=== PATIENT | female | born 1955 | race Caucasian/White ===

== ENCOUNTER → 2018-05-05 | Outpatient (REF) | payer BC, OTHER | LOC: M LAB REF 12:45 | DX: D22.5 Melanocytic nevi of trunk (principal) | CPT/HCPCS: 88305 ==

== ENCOUNTER → 2018-07-07 | Outpatient (REF) | payer BC, OTHER | LOC: M SFHCLERA 09:08 | DX: L57.0 Actinic keratosis (principal); L72.0 Epidermal cyst; L82.1 Other seborrheic keratosis | CPT/HCPCS: 88305 ==

== ENCOUNTER → 2018-09-24 | Outpatient (CLI) | payer BC, OTHER ==
--- NOTE | 2018-10-16 10:33 | REPMRS ---
Patient History The patient states she had a clinical breast exam in 09/30 Patient has history of skin cancer at age 63 and had first child at age 52. Family history of prostate cancer in father, breast cancer at age 80 in paternal aunt. Digital Woman Screen Mammo: September 24, 2018 - Exam #: [id number] Bilateral CC and MLO view(s) were taken. Technologist: Sherin Marlow, Technologist Prior study comparison: October 11, 2016, bilateral digital mammo screening bilat, [facility]. FINDINGS: The breast tissue is heterogeneously dense. This may lower the sensitivity of mammography. There is a moderate amount of heterogeneously dense fibroglandular tissue which is fairly symmetric. There is no interval development of dominant mass, architectural distortion, or clustered microcalcification typical of malignancy. There has been no change in the appearance of the mammogram from the prior studies. 3-D tomosynthesis shows no additional findings. Assessment: BI-RADS/ACR category 1 mammogram. Negative. Recommendation Routine screening mammogram of both breasts in 1 year (for women over age 40). This patient's Lifetime Breast Cancer RIsk is estimated at 15.2 %. This mammogram was interpreted with the aid of an FDA-approved computer-aided dectection system. Electronically Signed By: Milton Gallardo MD 10/16/18 [id number]
== END ==
LOC: M WHC 13:07 → EDUNIT# 13:30
PROVIDERS: ATTEND Nurse Practitioner Women's Health
DX: Z12.31 Encounter for screening mammogram for malignant neoplasm of breast (principal); Z85.828 Personal history of other malignant neoplasm of skin

== ENCOUNTER → 2018-09-24 | Outpatient (REF) | payer BC, OTHER ==
[2018-10-01 14:14] LABS: HPV HYBRID CAPTURE II Negative (Negative)
== END ==
LOC: M SFHCWAGY 13:18
DX: Z12.4 Encounter for screening for malignant neoplasm of cervix (principal)
CPT/HCPCS: G0123

== ENCOUNTER → 2019-04-14 | Outpatient (REF) | payer BC, OTHER ==
[2019-04-14 10:42] LABS: MALB URINE SIEMENS 8.2 MG/L; MAU/CREAT RATIO 12.2 MCG/MG (0.0-30.0)
[2019-04-14 12:26] LABS: BLOOD UREA NITROGEN 24 MG/DL (7-18); CALCIUM LEVEL 8.5 MG/DL (8.8-10.2); CARBON DIOXIDE LEVEL 27 MEQ/L (21-32); CHLORIDE LEVEL 109 MEQ/L (98-107); CHOLESTEROL LEVEL 169 MG/DL (<200); CHOLESTEROL RISK RATIO 2.449 (<5); CREATININE FOR GFR 0.52 MG/DL (0.55-1.30); GLOMERULAR FILTRATION RATE > 60.0 (>45); GLUCOSE, FASTING 94 MG/DL (70-100); HDL CHOLESTEROL 69 MG/DL (>40); LDL CHOLESTEROL 88 MG/DL (<100); NON-HDL-C 100 MG/DL; POTASSIUM SERUM 4.6 MEQ/L (3.5-5.1); SODIUM LEVEL 142 MEQ/L (136-145); TRIGLYCERIDES LEVEL 61 MG/DL (<150)
== END ==
LOC: M SFHCPLAZ 07:57
PROVIDERS: ATTEND Family Medicine
DX: E78.2 Mixed hyperlipidemia (principal); I10 Essential (primary) hypertension; Z11.59 Encounter for screening for other viral diseases
CPT/HCPCS: 36415; 80048; 80061; 82043; G0472

== ENCOUNTER → 2019-04-20 | Outpatient (REF) | payer BC, OTHER | LOC: M SFHCPLAZ 17:00 | PROVIDERS: ATTEND Dermatology | DX: L57.0 Actinic keratosis (principal); L57.8 Other skin changes due to chronic exposure to nonionizing radiation ==

== ENCOUNTER 2019-05-18 10:34 | Emergency (ER) | payer BC, OTHER ==
[~2019-05-18] VITALS: Ht 162.6 cm; Wt 72.9 kg
[2019-05-18 11:19] LABS: BASO % 0.5 % (0.0-1.0); EOS # 0.1 10^3/uL (0.0-0.50); EOS % 0.8 % (0.0-3.0); HEMATOCRIT 39.6 % (36.0-47.0); HEMOGLOBIN 13.6 g/dl (12.0-15.5); LYMPH # 1.7 10^3/uL (1.5-4.5); LYMPH % 26.3 % (24.0-44.0); MEAN CORPUSCULAR HEMOGLOBIN 33.8 pg (27.0-33.0); MEAN CORPUSCULAR HGB CONC 34.3 g/dl (32.0-36.5); MEAN CORPUSCULAR VOLUME 98.5 fl (80.0-96.0); MONO # 0.5 10^3/uL (0.0-0.8); MONO % 7.7 % (0.0-5.0); NEUTROPHILS # 4.3 10^3/uL (1.8-7.7); NEUTROPHILS % 64.4 % (36.0-66.0); PLATELET COUNT, AUTOMATED 299 10^3/uL (150-450); RED BLOOD COUNT 4.02 10^6/uL (4.00-5.40); WHITE BLOOD COUNT 6.6 10^3/uL (4.0-10.0)
[2019-05-18 11:29] LABS: INR 0.99; PROTHROMBIN TIME 12.8 SECONDS (11.8-14.0)
[2019-05-18 11:37] LABS: BLOOD UREA NITROGEN 18 MG/DL (7-18); CALCIUM LEVEL 9.8 MG/DL (8.8-10.2); CARBON DIOXIDE LEVEL 24 MEQ/L (21-32); CHLORIDE LEVEL 107 MEQ/L (98-107); CK-MB VALUE MASS 1.4 NG/ML (<3.6); CPK CREATINE PHOSPHOKINASE 95 U/L (26-192); CREATININE FOR GFR 0.72 MG/DL (0.55-1.30); GLOMERULAR FILTRATION RATE > 60.0 (>45); GLUCOSE, FASTING 97 MG/DL (70-100); MB/CK RELATIVE INDEX 1.47 (< OR =4); SODIUM LEVEL 140 MEQ/L (136-145); TROPONIN I < 0.02 NG/ML (< 0.10)
[2019-05-18] MEDS ORDERED: METO1TAB32 PO (12:39)
[2019-05-18] MEDS ORDERED: ASPIRIN 81 MG CHEW TABLET PO ONE (13:30)
--- NOTE | 2019-05-18 14:04 | REP ---
CHEST, SINGLE VIEW: No comparisons. There is no evidence of acute infiltrate. No pleural effusion is seen. The heart is normal in size. The mediastinal silhouette is unremarkable. The visualized osseous structures are intact. There is mild calcification and tortuosity of the thoracic aorta. IMPRESSION: No acute pulmonary disease. Electronically Signed by Ar Mckeon MD 05/20/2019 07:49 A
[2019-05-18 16:01] LABS: CK-MB VALUE MASS 1.4 NG/ML (<3.6); CPK CREATINE PHOSPHOKINASE 83 U/L (26-192); MB/CK RELATIVE INDEX 1.69 (< OR =4); TROPONIN I < 0.02 NG/ML (< 0.10)
[2019-05-18 16:34] VITALS: BP 135/70
--- NOTE | 2019-05-18 20:00 | ECGEPIP ---
[facility] - ED Test Date: 2019-05-18 Pat Name: CLAY MAYA Department: Room: - Gender: Female Dinkey Engineer: pmo : 1955 Requested By: Sagar Armendariz Order Number: [id number] Reading MD: Sagar Armendariz Measurements Intervals [place] Rate: 72 P: 54 IA: 144 QRS: 16 QRSD: 94 T: 56 QT: 395 QTc: 434 Interpretive Statements SINUS RHYTHM MODERATE ST DEPRESSION DELAYED R WAVE PROGRESSION NO PRIOR ECG FOR COMPARISON Electronically Signed on 05-18-2019 20:00:27 EDT by Sagar Armendariz
--- NOTE | 2019-05-18 20:12 | ECGEPIP ---
[facility] - ED Test Date: 2019-05-18 Pat Name: CLAY MAYA Department: Room: - Gender: Female Sales And Marketing Representative: : 1955 Requested By: Sagar Armendariz Order Number: [id number] Reading MD: Sagar Armendariz Measurements Intervals [place] Rate: 62 P: 40 DC: 155 QRS: -18 QRSD: 106 T: 95 QT: 413 QTc: 422 Interpretive Statements SINUS RHYTHM LAD LEFT VENTRICULAR HYPERTROPHY AND ST-T CHANGE BASELINE ARTIFACT MAY AFFECT READING BASELINE WANDERING MAY AFFECT READING DELAYED R WAVE PROGRESSION NONSPECIFIC ST T WAVE CHANGES CW 05/18/[address] T WAVE HANGES Electronically Signed on 05-18-2019 20:12:35 EDT by Sagar Armendariz
[2019-09-16] MEDS ORDERED: NAPR-885 PO (13:29)
[2019-09-16] MEDS ORDERED: GLUC1TAB58 PO (13:29)
[2019-09-16] MEDS ORDERED: CETI10CH PO (13:29)
[2019-09-16] MEDS ORDERED: ATOR80TA59 PO (13:29)
[2019-09-16] MEDS ORDERED: MULTCAP PO ×2 (13:29)
[2019-09-16] MEDS ORDERED: VALT500T PO (13:29)
[2019-09-16] MEDS ORDERED: VITA500T PO (13:29)
[2019-09-16] MEDS ORDERED: CLOP75TA2 PO (13:29)
[2019-09-16] MEDS ORDERED: CHOL50002 PO (13:29)
[2019-09-16] MEDS ORDERED: LANS30CA PO (13:29)
[2019-09-16] MEDS ORDERED: ASPI81TA85 PO (13:29)
[2019-09-16] MEDS ORDERED: ESCI10TA2 PO (13:29)
[2019-09-16] MEDS ORDERED: FLON1SPR NARES (13:29)
== END 2019-05-18 16:35 | disposition home or self-care (01) ==
LOC: M ED 10:34
DX: R07.9 Chest pain, unspecified (principal); I25.10 Atherosclerotic heart disease of native coronary artery without angina pectoris; I10 Essential (primary) hypertension; E78.5 Hyperlipidemia, unspecified; Z79.899 Other long term (current) drug therapy; Z88.2 Allergy status to sulfonamides; Z88.5 Allergy status to narcotic agent; Z91.89 Other specified personal risk factors, not elsewhere classified

== ENCOUNTER → 2019-05-29 | Outpatient (REF) | payer BC, OTHER ==
[~2019-05-29] MED LIST: METO1TAB32 PO
[2019-05-29 11:34] LABS: BASO % 0.1 % (0.0-1.0); LYMPH # 0.7 10^3/uL (1.5-4.5); LYMPH % 4.8 % (24.0-44.0); MEAN CORPUSCULAR HEMOGLOBIN 34.2 pg (27.0-33.0); MEAN CORPUSCULAR HGB CONC 34.3 g/dl (32.0-36.5); MEAN CORPUSCULAR VOLUME 99.7 fl (80.0-96.0); MONO # 0.5 10^3/uL (0.0-0.8); NEUTROPHILS # 13.6 10^3/uL (1.8-7.7); NEUTROPHILS % 91.4 % (36.0-66.0); PLATELET COUNT, AUTOMATED 284 10^3/uL (150-450); RED BLOOD COUNT 3.51 10^6/uL (4.00-5.40); WHITE BLOOD COUNT 14.9 10^3/uL (4.0-10.0)
[2019-05-29 11:58] LABS: BLOOD UREA NITROGEN 22 MG/DL (7-18); CALCIUM LEVEL 8.9 MG/DL (8.8-10.2); CARBON DIOXIDE LEVEL 22 MEQ/L (21-32); CHLORIDE LEVEL 106 MEQ/L (98-107); CREATININE FOR GFR 0.82 MG/DL (0.55-1.30); GLOMERULAR FILTRATION RATE > 60.0 (>45); GLUCOSE, FASTING 113 MG/DL (70-100); POTASSIUM SERUM 4.1 MEQ/L (3.5-5.1); SODIUM LEVEL 137 MEQ/L (136-145)
== END ==
LOC: M LABDRAWP 10:35
PROVIDERS: ATTEND Internal Medicine Cardiovascular Disease
DX: I25.10 Atherosclerotic heart disease of native coronary artery without angina pectoris (principal)

== ENCOUNTER 2019-10-12 12:53 | Outpatient (RCR) | payer BC, OTHER ==
--- NOTE | 2019-09-16 13:35 | CARECAPL ---
Assessment Account #s: Initial Assessment General Diagnoses: PTCA Date of event: Jun 12, 2019 Physician: JAE PERES MD Allergies: Coded Allergies: Sulfa (Sulfonamide Antibiotics) (Verified Allergy, Unknown, 05/18/19) codeine (Verified Allergy, Unknown, 05/18/19) iodine (Verified Allergy, Unknown, 05/18/19) Risk strat for cardiac event: High Exercise Assessment: Initial Assessment Stages of change: Pre-contemplation Exercise Prescription Plan Educate on cardiovascular disease and increase endurance, strength and fle xibility through a monitored exercise program. Modalities initiated: Nustep (will add resistance 1 for 6 minutes), Arm Aerometer (resistance of 1 for 5 minutes), Dumbells (will add 1lb ), Recumbent Bike (will add resistance of 1 for 5 minutes) Frequency: 2-3 Duration (Minutes) 30 - 60 minutes total exercise a day. 15 - 20 work intervals in minutes. PRN rest intervals in minutes. Functional Capacity Goal Sustained Metabolic Equivalent of a task (MET) goal of 3.0-4.0 for 15-20 minutes. Intensity: 3-Moderate Progression (METS) Increase by: 0.5 METS every: 3-5 sessions Target Heart Rate rest + 35-40 per beta loraine therapy. Resistance Training: Yes Weight (pounds): 1 Reps: 6-8 Medications Scheduled Ascorbic Acid (Vitamin C), 1,000 MG PO DAILY, (Reported) Aspirin (Aspir 81), 81 MG PO DAILY, (Reported) Atorvastatin Calcium (Atorvastatin Calcium), 80 MG PO DAILY, (Reported) Cetirizine HCl (Cetirizine HCl), 10 MG PO DAILY, (Reported) Cholecalciferol (Vitamin D3) (Vitamin D3), 5,000 UNIT PO DAILY, (Reported) Clopidogrel Bisulfate (Clopidogrel), 75 MG PO DAILY, (Reported) Escitalopram Oxalate (Escitalopram Oxalate), 10 MG PO DAILY, (Reported) Fluticasone Propionate (Flonase Allergy Relief), 2 SPRAY NARES DAILY, (Reported) Glucosamine/D3/Boswellia Kaycee (Osteo Bi-Flex Tablet), 1 EACH PO BID, (Reported) Lansoprazole (Lansoprazole), 30 MG PO DAILY, (Reported) Metoprolol Succinate (Metoprolol Succinate), 25 MG PO BID, (Reported) Multivitamin (Multivitamins), 1 CAP PO DAILY, (Reported) Multivitamin (Multivitamins), 1 CAP PO BID, (Reported) Naproxen (Naproxen), 500 MG PO BID, (Reported) Valacyclovir HCl (Valtrex), 500 MG PO DAILY, (Reported) Intervention Home exercise: Type (recumbent bike), Frequency (2 times a week), Duration (5 minutes) Resistance Training: No Education Goals Met: No Target Goals Individual exercise Rx (1) BP 140/90 or 130/80 if DM or CKD (1) Aerobic active 30+min 5 days per week (1) Nutrition Date: Sep 16, 2019 Assessment: Initial Assessment Stages of change: Pre-contemplation Lipids Total Cholesterol (169), High Density Lipids (HDL) (69), Low Density Lipids (LDL) (88), Triglycerides (61), Duration (2.449), Lipid med/supplement (atorvastatin 80 mg daily) Lipid- med/supplement atorvastatin 80mg daily Diabetes Diabetes: No Weight Management Weight (lbs): 164 Height (inches): 64 Waist Circumference (Inches): 38 BMI: 28.15 Weight goal: 144 Special Diet: mediteranean diet Vitamin/Supplements: Multivitamin, Vitamin C, Vitamin D Alcohol: weekly Alcohol Type: wine Alcohol Amount: 1 Diet Access Tool: Rate your plate Score: 56 Intervention Fruit Farmer Consult: No Nurse/patient discussion: No Diet Class: No Referral to Diabetes education: No Referral to lipid clinic: No Referral to weight mangement p: No Education Goals Met: No Target goal LDL-C<100 if triglycerides are >200 Non-HDL-C should be <130 (1) LDL-C<70 for high risk patients (4) HbA1c<7% (1) BMI<25 Waist cir<40in M/<35in F (1) Education Date: Sep 16, 2019 Assessment: Initial Assessment Knowledge Test Score: 10 Stages of change: Pre-contemplation Family Support: Yes Tobacco use: No Quit: never smoked Education Goals Met: No Target Goals Complete cessation of tobacco use (1). Psychosocial Date: Sep 16, 2019 Assessment: Initial Assessment Psych Test (Initial/Discharge) Tool Used: CESD Score: 3 Stages of change: Pre-contemplation Intervention Physician Consult: No Physician Referral: No Psychotropic medication lexapro Stress Management Class: No Uses Stress Management Skills: No Education Goals Met: No Target Goal Assess presence or absence of depression using a valid screening tool (1). Maximize coping skills (2). Positive support system (2). Patient/Program Goal Preventative Medication: Yes Aspirin, Yes Clopidogrel, Yes Beta blockade, Yes Statin/OTR lipid Lowering Fall Risk Assess: Yes (yes is a fall risk) Provider Assessment Provider Assessment: Proceed with rehab Evelia Salinas RN Sep 16, 2019 13:35
--- NOTE | 2019-10-05 13:12 | CARECAPL ---
Assessment Account #s: Re-Assessment I General Diagnoses: PTCA Date of event: Oct 05, 2019 Physician: JAE PERES MD Allergies: Coded Allergies: Sulfa (Sulfonamide Antibiotics) (Verified Allergy, Unknown, 05/18/19) codeine (Verified Allergy, Unknown, 05/18/19) iodine (Verified Allergy, Unknown, 05/18/19) Date Entered Program: Sep 21, 2019 Risk strat for cardiac event: High Exercise Date: Oct 05, 2019 Assessment: Re-Assessment I Stages of change: Contemplate Exercise Prescription Plan Educate on cardiovascular disease and increase endurance, strength and flexibility through a monitored exercise program. Modalities initiated: Nustep (Resistance 2 for 8 minutes Mets 4.4 RPE 3 ), Arm Aerometer (resistance 3 for 6 minutes Mets 2.9 RPE 3.5), Dumbells (8lb 1 set 15 reps RPE 3), Recumbent Bike (Resistance 3 for 8 minutes Mets 3.7 RPE 3.5) Frequency: 3 Duration (Minutes) 30 - 60 minutes total exercise a day. 15 - 20 work intervals in minutes. PRN rest intervals in minutes. Functional Capacity Goal Sustained Metabolic Equivalent of a task (MET) goal of 4.5-5.5 for 15-20 minutes. Intensity: 3-Moderate Progression (METS) Increase by:0.5 METS every: 3-5 sessions Angina with ex: No Target Heart Rate Rest + 35-40 per beta loraine therapy. Resistance Training: Yes Weight (pounds): 8 Reps: 12-15 Medications Scheduled Ascorbic Acid (Vitamin C), 1,000 MG PO DAILY, (Reported) Aspirin (Aspir 81), 81 MG PO DAILY, (Reported) Atorvastatin Calcium (Atorvastatin Calcium), 80 MG PO DAILY, (Reported) Cetirizine HCl (Cetirizine HCl), 10 MG PO DAILY, (Reported) Cholecalciferol (Vitamin D3) (Vitamin D3), 5,000 UNIT PO DAILY, (Reported) Clopidogrel Bisulfate (Clopidogrel), 75 MG PO DAILY, (Reported) Escitalopram Oxalate (Escitalopram Oxalate), 10 MG PO DAILY, (Reported) Fluticasone Propionate (Flonase Allergy Relief), 2 SPRAY NARES DAILY, (Reported) Glucosamine/D3/Boswellia Kaycee (Osteo Bi-Flex Tablet), 1 EACH PO BID, (Reported) Lansoprazole (Lansoprazole), 30 MG PO DAILY, (Reported) Metoprolol Succinate (Metoprolol Succinate), 25 MG PO BID, (Reported) Multivitamin (Multivitamins), 1 CAP PO DAILY, (Reported) Multivitamin (Multivitamins), 1 CAP PO BID, (Reported) Naproxen (Naproxen), 500 MG PO BID, (Reported) Valacyclovir HCl (Valtrex), 500 MG PO DAILY, (Reported) Current BP 124/84 Med Change: No Intervention Education: RPE Scale (patient demonstrates independence.), Equipment orientation (Patient needs some verbal cueing. ), warm up/cool down (patient demonstrates independence.) Education Goals Met: No Target Goals Individual exercise Rx (1) BP 140/90 or 130/80 if DM or CKD (1) Aerobic active 30+min 5 days per week (1) Nutrition Date: Oct 05, 2019 Assessment: Re-Assessment I Stages of change: Contemplate Med Change: No Diabetes Diabetes: No Current Weight (pounds): 163 Weight Goal lose some weight about 3lbs. Intervention Nutrition Services Manager Consult: No Nurse/patient discussion: No Diet Class: No Referral to Diabetes education: No Referral to lipid clinic: No Referral to weight mangement p: No (will see mail technician.) Education Goals Met: No Target goal LDL-C<100 if triglycerides are >200 Non-HDL-C should be <130 (1) LDL-C<70 for high risk patients (4) HbA1c<7% (1) BMI<25 Waist cir<40in M/<35in F (1) Education Date: Oct 05, 2019 Assessment: Re-Assessment I Stages of change: Contemplate Family Support: No Tobacco use: No Education Goals Met: No Target Goals Complete cessation of tobacco use (1). Psychosocial Date: Oct 05, 2019 Assessment: Re-Assessment I Stages of change: Contemplate Psychotropic medication lexapro Med Change: No Stress Management Class: No Uses Stress Management Skills: No Education Goals Met: No Target Goal Assess presence or absence of depression using a valid screening tool (1). Maximize coping skills (2). Positive support system (2). Patient/Program Goal Preventative Medication: Yes Aspirin, Yes Clopidogrel, Yes Beta blockade, Yes Statin/OTR lipid Lowering Fall Risk Assess: Yes (not a fall risk) Provider Assessment Session Number: 4 Provider Assessment: Proceed with rehab (progressing well.) Evelia Salinas RN Oct 05, 2019 13:12
[~2019-10-12 12:53] MED LIST changes: +ASPI81TA85 PO; +ATOR80TA59 PO; +CETI10CH PO; +CHOL50002 PO; +CLOP75TA2 PO; +ESCI10TA2 PO; +FLON1SPR NARES; +GLUC1TAB58 PO; +LANS30CA PO; +MULTCAP PO; +NAPR-885 PO; +VALT500T PO; +VITA500T PO
== END 2019-10-13 ==
LOC: M CR 12:53
PROVIDERS: ATTEND Internal Medicine Cardiovascular Disease
DX: Z51.89 Encounter for other specified aftercare (principal); Z98.61 Coronary angioplasty status

== ENCOUNTER 2019-11-11 11:25 | Outpatient (RCR) | payer BC, OTHER ==
--- NOTE | 2019-10-28 14:34 | CARECAPL ---
Assessment Account #s: Re-Assessment II General Diagnoses: PTCA Date of event: Jun 12, 2019 Physician: JAE PERES MD Allergies: Coded Allergies: Sulfa (Sulfonamide Antibiotics) (Verified Allergy, Unknown, 05/18/19) codeine (Verified Allergy, Unknown, 05/18/19) iodine (Verified Allergy, Unknown, 05/18/19) Date Entered Program: Sep 21, 2019 Risk strat for cardiac event: High Exercise Date: Oct 28, 2019 Assessment: Re-Assessment II Stages of change: Preperation Exercise Prescription Plan Educate on cardiovascular disease and increased endurance, strength and flexibility through a monitored exercise program. Modalities initiated: Nustep (resistance of 3 for 10 minutes. Mets 5.4 RPE 3), Arm Aerometer (resistance of 3.5 for 10 minutes. Mets 3.3 RPE 3), Dumbells (5lbs for 10 minutes. 2 sets for 15 reps RPE 3), Recumbent Bike (resistance of 4 for 8 minutes. Mets 4.3 RPE 4) Frequency: 2-3 Duration (Minutes) 30 - 60 minutes total exercise a day. 15 - 20 work intervals in minutes. PRN rest intervals in minutes. Functional Capacity Goal Sustained Metabolic Equivalent of a task (MET) goal of 5.5-6.0 for 15-20 minutes. Intensity: 3-Moderate Progression (METS) Increase by: 0.5 METS every: 3-5 sessions Angina with ex: No Target Heart Rate Rest +35-40 per beta loraine therapy. Resistance Training: Yes Weight (pounds): 5 Reps: 12-15 Medications Scheduled Ascorbic Acid (Vitamin C), 1,000 MG PO DAILY, (Reported) Aspirin (Aspir 81), 81 MG PO DAILY, (Reported) Atorvastatin Calcium (Atorvastatin Calcium), 80 MG PO DAILY, (Reported) Cetirizine HCl (Cetirizine HCl), 10 MG PO DAILY, (Reported) Cholecalciferol (Vitamin D3) (Vitamin D3), 5,000 UNIT PO DAILY, (Reported) Clopidogrel Bisulfate (Clopidogrel), 75 MG PO DAILY, (Reported) Escitalopram Oxalate (Escitalopram Oxalate), 10 MG PO DAILY, (Reported) Fluticasone Propionate (Flonase Allergy Relief), 2 SPRAY NARES DAILY, (Reported) Glucosamine/D3/Boswellia Kaycee (Osteo Bi-Flex Tablet), 1 EACH PO BID, (Reported) Lansoprazole (Lansoprazole), 30 MG PO DAILY, (Reported) Metoprolol Succinate (Metoprolol Succinate), 25 MG PO BID, (Reported) Multivitamin (Multivitamins), 1 CAP PO DAILY, (Reported) Multivitamin (Multivitamins), 1 CAP PO BID, (Reported) Naproxen (Naproxen), 500 MG PO BID, (Reported) Valacyclovir HCl (Valtrex), 500 MG PO DAILY, (Reported) Current BP 140/82 Med Change: No Intervention Education: Physical Active (patient stated the importance of staying active by going to [employer] or joining [employer].) Education Goals Met: No (see education on prior ITP's. Will continue to educate throughout program.) Target Goals Individual exercise Rx (1) BP 140/90 or 130/80 if DM or CKD (1) Aerobic active 30+min 5 days per week (1) Nutrition Date: Oct 28, 2019 Assessment: Re-Assessment II Stages of change: Preperation Med Change: No Diabetes Diabetes: No Current Weight (pounds): 166 Weight Goal Lose 5 pounds Education Goals Met: No (see education on prior ITP's. Will continue to educate throughout program.) Target goal LDL-C<100 if triglycerides are >200 Non-HDL-C should be <130 (1) LDL-C<70 for high risk patients (4) HbA1c<7% (1) BMI<25 Waist cir<40in M/<35in F (1) Education Date: Oct 28, 2019 Assessment: Re-Assessment II Stages of change: Preperation Family Support: Yes Tobacco use: No Education Goals Met: No (see education on prior ITP's. Will continue to educate throughout program.) Target Goals Complete cessation of tobacco use (1). Psychosocial Date: Oct 28, 2019 Assessment: Re-Assessment II Stages of change: Preperation Med Change: No Stress Management Class: No Uses Stress Management Skills: No Education Goals Met: No (see prior education on ITP's. Will continue to educate throughout program.) Target Goal Assess presence or absence of depression using a valid screening tool (1). Maximize coping skills (2). Positive support system (2). Patient/Program Goal Preventative Medication: Yes Aspirin, Yes Clopidogrel, Yes Beta blockade, Yes Statin/OTR lipid Lowering Fall Risk Assess: Yes (no fall risk) Provider Assessment Session Number: 10 Provider Assessment: Proceed with rehab (patient progressing well with cardiac rehabilitation in attendance is good.) Evelia Salinas RN Oct 28, 2019 14:34
== END 2019-11-13 ==
LOC: M CR 11:25
PROVIDERS: ATTEND Internal Medicine Cardiovascular Disease
DX: Z51.89 Encounter for other specified aftercare (principal); Z98.61 Coronary angioplasty status

== ENCOUNTER 2019-12-09 11:23 | Outpatient (RCR) | payer BC, OTHER ==
--- NOTE | 2019-11-23 09:03 | CARECAPL ---
Assessment Account #s: Re-Assessment II (assessment 3) General Diagnoses: PTCA Date of event: Jun 12, 2019 Physician: JAE PERES MD Allergies: Coded Allergies: Sulfa (Sulfonamide Antibiotics) (Verified Allergy, Unknown, 05/18/19) codeine (Verified Allergy, Unknown, 05/18/19) iodine (Verified Allergy, Unknown, 05/18/19) Date Entered Program: Sep 21, 2019 Risk strat for cardiac event: High Exercise Date: Nov 18, 2019 Assessment: Re-Assessment II (assessment 3) Stages of change: action Exercise Prescription Plan Educate on cardiovascular disease and increase endurance, strength and flexibility through a monitored exercise program. Modalities initiated: Nustep (resistance of 3 for 14 minutes. Mets 5.2 RPE 3), Arm Aerometer (resistance of 3.5 for 10 minutes. Mets 3.2 RPE 3), Dumbells (8 1 set 15 reps RPE 3), Recumbent Bike (resistance of 4 for 10 minutes. METs 8.4 RPE 3) Frequency: 2-3 Duration (Minutes) 30 - 60 minutes total exercise a day. 15 - 20 work intervals in minutes. PRN rest intervals in minutes. Functional Capacity Goal Sustained Metabolic Equivalent of a task (MET) goal of 6.0-6.5 for 15-20 minutes. Intensity: 3-Moderate Progression (METS) Increase by: 0.5 METS every: 3-5 sessions Angina with ex: No Target Heart Rate Rest +35-40 per beta loraine therapy. Resistance Training: Yes Weight (pounds): 8 Reps: 12-15 Medications Scheduled Ascorbic Acid (Vitamin C), 1,000 MG PO DAILY, (Reported) Aspirin (Aspir 81), 81 MG PO DAILY, (Reported) Atorvastatin Calcium (Atorvastatin Calcium), 80 MG PO DAILY, (Reported) Cetirizine HCl (Cetirizine HCl), 10 MG PO DAILY, (Reported) Cholecalciferol (Vitamin D3) (Vitamin D3), 5,000 UNIT PO DAILY, (Reported) Clopidogrel Bisulfate (Clopidogrel), 75 MG PO DAILY, (Reported) Escitalopram Oxalate (Escitalopram Oxalate), 10 MG PO DAILY, (Reported) Fluticasone Propionate (Flonase Allergy Relief), 2 SPRAY NARES DAILY, (Reported) Glucosamine/D3/Boswellia Kaycee (Osteo Bi-Flex Tablet), 1 EACH PO BID, (Reported) Lansoprazole (Lansoprazole), 30 MG PO DAILY, (Reported) Metoprolol Succinate (Metoprolol Succinate), 25 MG PO BID, (Reported) Multivitamin (Multivitamins), 1 CAP PO DAILY, (Reported) Multivitamin (Multivitamins), 1 CAP PO BID, (Reported) Naproxen (Naproxen), 500 MG PO BID, (Reported) Valacyclovir HCl (Valtrex), 500 MG PO DAILY, (Reported) Current BP 124/88 Med Change: No Education Goals Met: No (see education on prior ITP. Will continue to monitor throughout program.) Target Goals Individual exercise Rx (1) BP 140/90 or 130/80 if DM or CKD (1) Aerobic active 30+min 5 days per week (1) Nutrition Date: Nov 23, 2019 Assessment: Re-Assessment II (assessment 3) Med Change: No Diabetes Diabetes: No Current Weight (pounds): 163 Weight Goal 155 Intervention Velvet Weaver Consult: No Nurse/patient discussion: Yes Dietary Goals eat healthier portions Diet Class: No Education Goals Met: No (see education on prior ITPs. Will continue to educate throughout program) Target goal LDL-C<100 if triglycerides are >200 Non-HDL-C should be <130 (1) LDL-C<70 for high risk patients (4) HbA1c<7% (1) BMI<25 Waist cir<40in M/<35in F (1) Education Date: Nov 23, 2019 Assessment: Re-Assessment II (assessment 3) Stages of change: action Quit: never smoked Education Goals Met: No (see education of prior ITPs. Will continued educate throughout program.) Target Goals Complete cessation of tobacco use (1). Psychosocial Date: Nov 23, 2019 Assessment: Re-Assessment II (assessment 3) Stages of change: action Med Change: No Education Goals Met: No (see education of prior ITPs. Will continue to educate throughout program) Target Goal Assess presence or absence of depression using a valid screening tool (1). Maximize coping skills (2). Positive support system (2). Patient/Program Goal Preventative Medication: Yes Aspirin, Yes Clopidogrel, Yes Beta blockade, Yes Statin/OTR lipid Lowering Fall Risk Assess: Yes (no followers) Provider Assessment Session Number: 16 Provider Assessment: Proceed with rehab (progressing well in cardiac rehabilitation and attendance is good) Evelia Salinas RN Nov 23, 2019 09:03
[2019-11-25 09:57] VITALS: BP 134/88
[2019-11-25 10:29] VITALS: BP 162/80
[2019-11-30 10:10] VITALS: BP 100/70
[2019-11-30 10:49] VITALS: BP 150/88
[2019-11-30 11:30] VITALS: BP 108/76
[2019-12-03 10:13] VITALS: BP 152/86
[2019-12-03 10:42] VITALS: BP 162/84
[2019-12-03 11:19] VITALS: BP 138/78
[2019-12-07 11:21] VITALS: BP_SYST 128; BP_SYST 130; BP_SYST 170; BP_DIAS 60; BP_DIAS 80; BP_DIAS 90
[~2019-12-09] VITALS: Ht 162.6 cm; Wt 74.8 kg
[2019-12-09 13:32] VITALS: BP 138/80
[2019-12-09 13:33] VITALS: BP_SYST 146; BP_SYST 158; BP_DIAS 80; BP_DIAS 82
== END 2019-12-12 ==
LOC: M CR 11:23
PROVIDERS: ATTEND Internal Medicine Cardiovascular Disease
DX: Z98.61 Coronary angioplasty status (principal)

== ENCOUNTER 2019-12-14 13:26 | Outpatient (RCR) | payer BC, OTHER ==
--- NOTE | 2019-12-14 17:10 | CARECAPL ---
Assessment Account #s: Discharge General Diagnoses: PTCA Allergies: Coded Allergies: Sulfa (Sulfonamide Antibiotics) (Verified Allergy, Unknown, 05/18/19) codeine (Verified Allergy, Unknown, 05/18/19) iodine (Verified Allergy, Unknown, 05/18/19) Date Entered Program: Sep 21, 2019 Risk strat for cardiac event: High Exercise Assessment: Followup/Discharge Stages of change: action Exercise Prescription Plan TO EDUCATE AND BUILD ENDURANCE THROUGH MONITORED EXERCISE PROGRAM Modalities initiated: Nustep (METS=5.0/RPE=3), Arm Aerometer (METS=3.3/RPE=3), Dumbells (8#/RPE=3), Recumbent Bike (METS=8.2/RPE=3) Frequency: 3 Duration (Minutes) 30 - 60 minutes total exercise a day. 15 - 20 work intervals in minutes. PRN rest intervals in minutes. Functional Capacity Goal Sustained Metabolic Equivalent of a task (MET) goal of 6.0-6.5 for 15-20 minutes. Intensity: 3-Moderate Progression (METS) Increase by: METS every: sessions Angina with ex: No Target Heart Rate REST +35-40 Resistance Training: Yes Reps: 12-15 Resting 160/86 Peak Exercise BP 160/84 Medications Scheduled Ascorbic Acid (Vitamin C), 1,000 MG PO DAILY, (Reported) Aspirin (Aspir 81), 81 MG PO DAILY, (Reported) Atorvastatin Calcium (Atorvastatin Calcium), 80 MG PO DAILY, (Reported) Cetirizine HCl (Cetirizine HCl), 10 MG PO DAILY, (Reported) Cholecalciferol (Vitamin D3) (Vitamin D3), 5,000 UNIT PO DAILY, (Reported) Clopidogrel Bisulfate (Clopidogrel), 75 MG PO DAILY, (Reported) Escitalopram Oxalate (Escitalopram Oxalate), 10 MG PO DAILY, (Reported) Fluticasone Propionate (Flonase Allergy Relief), 2 SPRAY NARES DAILY, (Reported) Glucosamine/D3/Boswellia Kaycee (Osteo Bi-Flex Tablet), 1 EACH PO BID, (Reported) Lansoprazole (Lansoprazole), 30 MG PO DAILY, (Reported) Metoprolol Succinate (Metoprolol Succinate), 25 MG PO BID, (Reported) Multivitamin (Multivitamins), 1 CAP PO DAILY, (Reported) Multivitamin (Multivitamins), 1 CAP PO BID, (Reported) Naproxen (Naproxen), 500 MG PO BID, (Reported) Valacyclovir HCl (Valtrex), 500 MG PO DAILY, (Reported) Current BP 158/80 Med Change: No Intervention Resistance Training: Yes Education: Self pulse (SEE EDUCATION DOCUMENTED ON PRIOR ITP'S, CONTINUED TO REINFORCE THROUGHOUT PROGRAM) Education Goals Met: Yes Target Goals Individual exercise Rx (1) BP 140/90 or 130/80 if DM or CKD (1) Aerobic active 30+min 5 days per week (1) Nutrition Date: Dec 14, 2019 Assessment: Followup/Discharge Stages of change: action Lipid- med/supplement ATORVASTATIN 80 MG DAILY Med Change: No Diabetes Diabetes: No Monitor Blood Sugar at home: No Special Diet: low salt, low-fat Vitamin/Supplements: Multivitamin, Vitamin C, Vitamin D Current Weight (pounds): 164.5 Intervention Color Print Inspector Consult: No Nurse/patient discussion: Yes Dietary Goals TO MAKE HEART HEALTHY DIET CHOICES, SMALLER PORTIONS Diet Class: Yes (MET WITH CHIP DRIER 11/23/19) Referral to Diabetes education: No Referral to lipid clinic: No Referral to weight mangement p: No Education Eating Healthy Education Goals Met: Yes Target goal LDL-C<100 if triglycerides are >200 Non-HDL-C should be <130 (1) LDL-C<70 for high risk patients (4) HbA1c<7% (1) BMI<25 Waist cir<40in M/<35in F (1) Education Date: Dec 14, 2019 Assessment: Followup/Discharge Learning Barriers: ready Stages of change: action Family Support: Yes Tobacco use: No Intervention Referral to smoking cessation: No Individual education and couns: No Tobacco Adjunct: No Education class schedule given: No Attended education classes: No Education: tobacco triggers (SEE EDUCATION COMPLETED ON PREVIOUS ITP'S, CONTINUED TO REINFORCE WHILE IN PROGRAM) Education Goals Met: Yes Target Goals Complete cessation of tobacco use (1). Psychosocial Date: Dec 14, 2019 Assessment: Followup/Discharge Stages of change: action Intervention Physician Consult: No Physician Referral: No Med Change: No Stress Management Class: No Uses Stress Management Skills: Yes Education Education: Coping Techniques (SEE EDUCATION COMPLETED ON PREVIOUS ITP'S, CONTINUED TO REINFORCE WHILE IN PROGRAM) Education Goals Met: Yes (GOOD ATTENDENCE, VERY RECEPTIVE TO EDUCATION ) Target Goal Assess presence or absence of depression using a valid screening tool (1). Maximize coping skills (2). Positive support system (2). Patient/Program Goal Preventative Medication: Yes Aspirin, Yes Clopidogrel, Yes Beta blockade, Yes Statin/OTR lipid Lowering Fall Risk Assess: Yes (NOT A FALL RISK) Provider Assessment Session Number: [id number] Wang Green RN Dec 14, 2019 17:10
== END 2020-01-12 ==
LOC: M CR 13:26
PROVIDERS: ATTEND Internal Medicine Cardiovascular Disease
DX: Z51.89 Encounter for other specified aftercare (principal); Z98.61 Coronary angioplasty status

== ENCOUNTER → 2020-03-22 | Outpatient (REF) | payer BC, OTHER ==
[~2020-03-22] MED LIST changes: +VITA-243 PO; -VITA500T PO
[2020-03-22 11:41] LABS: ALBUMIN 4.1 GM/DL (3.2-5.2); ALT/SGPT 33 U/L (12-78); BILIRUBIN,TOTAL 0.4 MG/DL (0.2-1.0); BLOOD UREA NITROGEN 16 MG/DL (7-18); CALCIUM LEVEL 8.7 MG/DL (8.8-10.2); CARBON DIOXIDE LEVEL 30 MEQ/L (21-32); CHLORIDE LEVEL 108 MEQ/L (98-107); CHOLESTEROL LEVEL 162 MG/DL (<200); CHOLESTEROL RISK RATIO 2.492 (<5); CREATININE FOR GFR 0.55 MG/DL (0.55-1.30); FREE T4 0.94 NG/DL (0.76-1.46); GLOMERULAR FILTRATION RATE > 60.0 (>45); GLUCOSE, FASTING 91 MG/DL (70-100); HDL CHOLESTEROL 65 MG/DL (>40); LDL CHOLESTEROL 81 MG/DL (<100); NON-HDL-C 97 MG/DL; POTASSIUM SERUM 4.8 MEQ/L (3.5-5.1); SODIUM LEVEL 142 MEQ/L (136-145); THYROID STIMULATING HORMONE 0.978 uIU/ML (0.358-3.740); TOTAL PROTEIN 6.7 GM/DL (6.4-8.2); TRIGLYCERIDES LEVEL 81 MG/DL (<150)
== END ==
LOC: M SFHCPLAZ 08:26
PROVIDERS: ATTEND Family Medicine
DX: E78.2 Mixed hyperlipidemia (principal); I10 Essential (primary) hypertension; R68.89 Other general symptoms and signs

== ENCOUNTER → 2020-07-15 | Outpatient (CLI) | payer BC, OTHER ==
[~2020-07-15] MED LIST changes: -ASPI81TA85 PO; +ASPI81TA86 PO
--- NOTE | 2020-07-15 15:18 | REPMRS ---
Patient History The patient states she had a clinical breast exam in July 2020.Family history of prostate cancer in father, breast cancer at age 80 in paternal aunt. 3D TOMOSYNTHESIS WAS PERFORMED. The Emely Soriano lifetime risk for breast cancer is14.7 %. [facility]CO Garcia. Digital Woman Screen Mammo: July 15, 2020 - Exam #: [id number] Bilateral CC and MLO view(s) were taken. Technologist: Gely Lima, Technologist Prior study comparison: September 24, 2018, bilateral digital woman screen mammo performed at [facility]. October 11, 2016, bilateral digital mammo screening bilat, performed at [facility]. FINDINGS: The breast tissue is heterogeneously dense. This may lower the sensitivity of mammography. There has been no change in the appearance of the mammogram from the prior studies. There is a moderate amount of residual fibroglandular tissue which is fairly symmetric. There is no interval development of dominant mass, areas of architectural distortion, or clustered microcalcification typical of malignancy. Assessment: BI-RADS/ACR category 1 mammogram. Negative Mammogram. Recommendation Routine screening mammogram in 1 year (for women over age 40). This mammogram was interpreted with the aid of an FDA-approved computer-aided dectection system. Electronically Signed By: Ar Mcekon MD 07/15/20 1958
== END ==
LOC: M WHC 13:28
PROVIDERS: ATTEND Nurse Practitioner Women's Health
DX: Z12.31 Encounter for screening mammogram for malignant neoplasm of breast (principal)

== ENCOUNTER 2020-09-06 10:23 | Outpatient (RCR) | payer BC, OTHER | END 2020-09-12 | LOC: M PT 10:23 | PROVIDERS: ATTEND Orthopaedic Surgery | DX: Z01.818 Encounter for other preprocedural examination (principal); M17.12 Unilateral primary osteoarthritis, left knee ==

== ENCOUNTER → 2020-09-12 | Outpatient (CLI) | payer BC, OTHER ==
--- NOTE | 2020-09-12 09:34 | REP ---
INDICATION: L KNEE OSTEOARTHRITIS/ LAB COMPARISON: 05/18/2019 TECHNIQUE: PA and lateral. FINDINGS: The mediastinum and cardiac silhouette are normal. The lung bran are clear and without acute consolidation, effusion, or pneumothorax. The skeletal structures are intact and normal. IMPRESSION: No acute cardiopulmonary process. <Electronically signed by Angelito Monreal > 09/12/20 0995
--- NOTE | 2020-09-12 09:44 | ECGEPIP ---
[facility] Test Date: 2020-09-12 Pat Name: CLAY MAYA Department: Room: - Gender: Female Angle Furnaceman: [facility] : 1955 Requested By: Mireya Cruz Order Number: [id number] Reading MD: Ny Johnson Measurements Intervals [place] Rate: 76 P: 50 LA: 148 QRS: -3 QRSD: 94 T: 66 QT: 383 QTc: 431 Interpretive Statements SINUS RHYTHM POSSIBLE ANTERIOR MYOCARDIAL INFARCTION, OF INDETERMINATE AGE SLOWER R WAVE PROGRESSION AND T WAVE ABN NORMALIZATION C/W 05/18/19 Electronically Signed on 09-12-2020 9:43:39 EST by Ny Johnson
[2020-09-12 10:02] LABS: HEMATOCRIT 39.7 % (36.0-47.0); MEAN CORPUSCULAR HEMOGLOBIN 32.8 pg (27.0-33.0); MEAN CORPUSCULAR HGB CONC 32.7 g/dl (32.0-36.5); MEAN CORPUSCULAR VOLUME 100.3 fl (80.0-96.0); PLATELET COUNT, AUTOMATED 273 10^3/uL (150-450); RED BLOOD COUNT 3.96 10^6/uL (4.00-5.40); WHITE BLOOD COUNT 6.2 10^3/uL (4.0-10.0)
[2020-09-12 10:09] LABS: INR 0.97; PROTHROMBIN TIME 13.1 SECONDS (12.5-14.3)
[2020-09-12 10:35] LABS: ALBUMIN 4.5 GM/DL (3.2-5.2); ALT/SGPT 25 U/L (12-78); BILIRUBIN,TOTAL 0.4 MG/DL (0.2-1.0); BLOOD UREA NITROGEN 21 MG/DL (7-18); CALCIUM LEVEL 9.4 MG/DL (8.8-10.2); CARBON DIOXIDE LEVEL 27 MEQ/L (21-32); CHLORIDE LEVEL 106 MEQ/L (98-107); CREATININE FOR GFR 0.64 MG/DL (0.55-1.30); GLOMERULAR FILTRATION RATE > 60.0 (>45); GLUCOSE, FASTING 104 MG/DL (70-100); POTASSIUM SERUM 4.4 MEQ/L (3.5-5.1); SODIUM LEVEL 138 MEQ/L (136-145); TOTAL PROTEIN 6.8 GM/DL (6.4-8.2)
[2020-09-12 10:48] LABS: ERYTHROCYTE SEDIMENTATION RATE 10 mm/hr (0-30)
== END ==
LOC: M LAB 08:57
PROVIDERS: ATTEND Orthopaedic Surgery
DX: Z01.818 Encounter for other preprocedural examination (principal); M17.12 Unilateral primary osteoarthritis, left knee; R94.31 Abnormal electrocardiogram [ECG] [EKG]

== ENCOUNTER → 2020-09-13 | Outpatient (REF) | payer BC, OTHER ==
[2020-09-13 13:45] LABS: HEMATOCRIT 39.3 % (36.0-47.0)
[2020-09-13 14:22] LABS: THYROID STIMULATING HORMONE 0.941 uIU/ML (0.358-3.740)
== END ==
LOC: M SFHCPLAZ 10:15
PROVIDERS: ATTEND Family Medicine
DX: D75.89 Other specified diseases of blood and blood-forming organs (principal)

== ENCOUNTER → 2020-10-04 | Outpatient (REF) | payer BC, OTHER ==
[~2020-10-04] MED LIST changes: +BANO25TA PO; +GOOD81CH3 PO; +IPRAINH INH; +OLOP0.1D OD; +PRED20TA PO; +VALA500T5 PO; +VITA1CHW7 PO; +VITMTA PO; +ZOVI5CRE4 EXT
[2020-10-04 11:12] LABS: APPEARANCE, URINE CLEAR (CLEAR); BACTERIA, URINE AUTO NEGATIVE (NEGATIVE); BILIRUBIN, URINE AUTO NEGATIVE (NEGATIVE); BLOOD, URINE BLOOD NEGATIVE (NEGATIVE); COLOR, URINE STRAW (YELLOW); GLUCOSE, URINE (UA) AUTO NEGATIVE (NEGATIVE); KETONE, URINE AUTO NEGATIVE (NEGATIVE); LEUKOCYTE ESTERASE, URINE AUTO NEGATIVE (NEGATIVE); NITRITE, URINE AUTO NEGATIVE (NEGATIVE); PROTEIN, URINE AUTO NEGATIVE (NEGATIVE); RBC, URINE AUTO 0 /HPF (0-3); SPECIFIC GRAVITY URINE AUTO 1.003 (1.002-1.035); SQUAMOUS EPITHELIAL CELL UR AU 0 /HPF (0-6); UROBILINOGEN, URINE AUTO 0.2 mg/dL (0.0-2.0); WBC, URINE AUTO 0 /HPF (0-3)
[2020-10-04 11:13] LABS: BASO % 0.3 % (0.0-1.0); EOS # 0.1 10^3/uL (0.0-0.5); EOS % 1.4 % (0.0-3.0); HEMATOCRIT 39.7 % (36.0-47.0); HEMOGLOBIN 12.8 g/dl (12.0-15.5); LYMPH # 1.6 10^3/uL (1.5-5.0); LYMPH % 22.9 % (24.0-44.0); MEAN CORPUSCULAR HEMOGLOBIN 32.6 pg (27.0-33.0); MEAN CORPUSCULAR HGB CONC 32.2 g/dl (32.0-36.5); MONO # 0.5 10^3/uL (0.0-0.8); MONO % 7.7 % (0.0-5.0); NEUTROPHILS # 4.6 10^3/uL (1.5-8.5); NEUTROPHILS % 67.3 % (36.0-66.0); PLATELET COUNT, AUTOMATED 304 10^3/uL (150-450); RED BLOOD COUNT 3.93 10^6/uL (4.00-5.40); WHITE BLOOD COUNT 6.9 10^3/uL (4.0-10.0)
[2020-10-04 12:02] LABS: ALBUMIN 4.5 GM/DL (3.2-5.2); ALT/SGPT 30 U/L (12-78); BILIRUBIN,TOTAL 0.4 MG/DL (0.2-1.0); BLOOD UREA NITROGEN 20 MG/DL (7-18); CALCIUM LEVEL 9.6 MG/DL (8.8-10.2); CARBON DIOXIDE LEVEL 28 MEQ/L (21-32); CHLORIDE LEVEL 105 MEQ/L (98-107); CREATININE FOR GFR 0.66 MG/DL (0.55-1.30); GLOMERULAR FILTRATION RATE > 60.0 (>45); GLUCOSE, FASTING 101 MG/DL (70-100); POTASSIUM SERUM 4.8 MEQ/L (3.5-5.1); SODIUM LEVEL 138 MEQ/L (136-145); TOTAL PROTEIN 7.2 GM/DL (6.4-8.2)
== END ==
LOC: M SFHCPLAZ 07:58
PROVIDERS: ATTEND Family Medicine
DX: R10.32 Left lower quadrant pain (principal)

== ENCOUNTER → 2020-10-09 | Outpatient (CLI) | payer BC, OTHER | LOC: M LABSMTC 08:05 | PROVIDERS: ATTEND Anesthesiology | DX: Z01.812 Encounter for preprocedural laboratory examination (principal); Z20.828 Contact with and (suspected) exposure to other viral communicable diseases ==

== ENCOUNTER → 2020-10-10 | Outpatient (CLI) | payer BC, OTHER ==
[~2020-10-10] MED LIST changes: +DIFL150T PO; +IPRAINH; -IPRAINH INH; +PERC5TAB12 PO; +XARE10TA PO
--- NOTE | 2020-10-10 08:52 | REP ---
INDICATION: R10.32 LLQ PAIN COMPARISON: None. TECHNIQUE: Transabdominal pelvic ultrasound followed by transvaginal examination for better evaluation of the endometrium and adnexa with color Doppler evaluation of the ovaries. FINDINGS: Bladder is unremarkable and measures 9.1 x 8.3 x 9.4 cm. Heterogeneous myomatous anteverted uterus measures 6.1 x 2.5 x 3.7 cm. The endometrial complex measures 1.3 mm thickness. Partially calcified degenerating fibroids in the fundus measure 1.9 x 1.6 x 1.7 cm and 1.6 x 1.6 x 1.4 cm. Right ovary measures 2.7 x 1.4 x 1.6 cm and includes small cysts measuring up to 11 x 9 x 6 mm. Left ovary appears normal and measures 1.9 x 1.5 x 1.3 cm. No pelvic fluid or adnexal mass lesion. IMPRESSION: 1. Heterogeneous myomatous uterus with partially calcified degenerating fibroids up to 1.9 cm. 2. Cystic changes in the right ovary appear relatively simple and likely benign. <Electronically signed by Angelito Monreal > 10/10/20 0820
== END ==
LOC: M WHC 07:59
PROVIDERS: ATTEND Family Medicine
DX: R10.32 Left lower quadrant pain (principal)

== ENCOUNTER 2020-10-12 08:20 | Inpatient (IN) | payer BC, OTHER ==
[~2020-10-12] VITALS: Ht 160 cm; Wt 73.8 kg
[~2020-10-12 08:20] MED LIST changes: +ACETAMINOPHEN 500 MG TAB PO ONE; -DIFL150T PO; +LR 1,000 ML IV ONE; +MIDAZOLAM INJ 2MG/2ML VIAL (J2250 PER 1MG) IV PRN; -PERC5TAB12 PO; -XARE10TA PO; +ceFAZolin SOD 2 GM in IV 1 EA IV ONE; +fentaNYL 100 MCG/2 ML INJECTION (J3010) IV PRN
[2020-10-12] MEDS ORDERED: BUPIVACAINE HCL 0.25% 10ML VIAL As Ordered ONE (09:48)
[2020-10-12] MEDS ORDERED: TRANEXAMIC ACID 100 MG/ML 10ML VIAL As Ordered ONE (09:48)
[2020-10-12] MEDS ORDERED: ceFAZolin 1GM VIAL (J0690 PER 500MG) As Ordered ONE (09:49)
[2020-10-12] MEDS ORDERED: EPINEPHrine INJ 1 MG/ML 1ML AMP As Ordered ONE (09:49)
[2020-10-12] MEDS ORDERED: BUPIVACAINE LIPOSOME/PF 1.3% 20ML VIAL (13.3MG/ML)(EXPAREL)(C9290 PER1MG) As Ordered ONE (09:49)
[2020-10-12] MEDS ORDERED: MIDAZOLAM INJ 2MG/2ML VIAL (J2250 PER 1MG) As Ordered ONE (10:26)
[2020-10-12] MEDS ORDERED: propofoL 200 MG/20 ML VIAL As Ordered ONE ×3 (10:26→13:34)
[2020-10-12] MEDS ORDERED: fentaNYL 100 MCG/2 ML INJECTION (J3010) As Ordered ONE (10:26)
[2020-10-12] MEDS ORDERED: LIDOCAINE 2% 100MG/5ML SDV (FOR ANES.) As Ordered ONE (10:26)
[2020-10-12] MEDS ORDERED: ONDANSETRON 4MG/2ML VIAL As Ordered ONE (10:26)
--- NOTE | 2020-10-12 11:14 | HPE ---
HISTORY AND PHYSICAL DATE OF ADMISSION: 10/12/2020 ATTENDING PHYSICIAN: Dr. Anthony Phillips CHIEF COMPLAINT: Left knee pain and stiffness. HISTORY: The patient is a 65-year-old female with progressively worsening left knee pain and stiffness. She failed to improve with conservative measures. She continues to have symptoms with weightbearing activities and activities of daily living. She has consented for an elective left total knee arthroplasty with Dr. Phillips for her continued symptoms. CURRENT MEDICATIONS: - Aspirin 81 mg daily - Pataday ophthalmic solution as needed - Zovirax 5% cream if needed - Lexapro 10 mg daily - Zyrtec 10 mg daily - Lipitor 80 mg daily - Metoprolol 25 mg twice a day - Lansoprazole 30 mg daily - Naproxen 500 mg twice a day - Valtrex 500 mg once daily - Atrovent solution nasally - Vitamin D3 - Vitamin C - Osteo Bi-Flex - Multivitamin ALLERGIES: CODEINE, SULFA DRUGS, IODINE. CHRONIC MEDICAL CONDITIONS: Coronary artery disease with 90% blockage of the right coronary artery (RCA), depression, anxiety, insomnia, hypertension, hyperlipidemia, seasonal allergies, gastroesophageal reflux disease, history of Herpes simplex virus (HSV). PAST SURGICAL HISTORY: Percutaneous transluminal coronary angioplasty/drug-eluting stent (PTCA/HARVINDER) times two, tonsillectomy, rhinoplasty trigger finger releases, bilateral carpal tunnel releases, corneal scraping, cardiac catheterization with two stents. SOCIAL HISTORY: The patient is a nonsmoker and rarely uses alcohol. REVIEW OF SYSTEMS: The patient denies fevers or chills, nausea or vomiting. She has had some intermittent diarrhea over the past few weeks. She denies chest pain, shortness of breath, lightheadedness, dizziness, or headaches. She denies any recent upper respiratory or urinary tract infection symptoms. She does have some intermittent abdominal pain and is under the care of her primary small animal caretaker for that. The patient continues to have left knee pain with weightbearing activities and activities of daily living. PHYSICAL EXAMINATION: General: Well nourished, well developed female in no apparent distress. She is alert, oriented and cooperative. Mood and affect are appropriate. Breathing is regular and nonlabored. Vital signs: Height 64 inches, weight 155.4 pounds, temperature 97.1, blood pressure 122/78, heart rate 62, respirations 17. Neck is supple without lymphadenopathy. Heart regular rate and rhythm. Lungs are clear to auscultation bilaterally. Abdomen is soft and nontender. Bowel sounds are present. Musculoskeletal: Left knee exhibits no gross abnormalities. There was tenderness along the medial and lateral joint lines. The patient does have full active range of motion in the left knee with 5/5 strength in the left lower extremity. Calf is soft and nontender without evidence of deep venous thrombosis (DVT). She is neurovascularly intact distally. No hip irritability was elicited with range of motion testing. IMAGING AND LABORATORY DATA: Chest x-ray: No acute cardiopulmonary process. Left knee x-ray notable for end stage degenerative changes. EKG: Sinus rhythm with possible anterior myocardial infarction of indeterminate age. Slower R wave progression and T wave abnormality, pseudonormalization. Prothrombin time 13.1, INR 0.97. Comprehensive metabolic profile: Fasting glucose elevated at 104, BUN elevated at 21, creatinine 0.64, GFR greater than 60, sodium 138, potassium 4.4, chloride 106, chloride 106, CO2 27, anion gap decreased at 5, calcium 9.4, AST 15, ALT 25, alkaline phosphatase 74, total bilirubin 0.4, total protein 6.8. Albumin 4.5, albumin globulin ratio 2. Complete blood count: ESR 10, WBCs 6.2, RBCs decreased at 3.96. Hemoglobin 13, hematocrit 39.7, platelets 273. IMPRESSION: Left knee degenerative arthritis with x-rays notable for end stage degenerative changes. PLAN: The patient has consented for an elective left total knee arthroplasty with Dr. Phillips for her continued symptoms. Medical optimization completed with her primary small animal caretaker Dr. Jones and snailer, Dr. Ye Sampson. The patient is following her primary small animal caretaker's recommendations on how to take her daily medications. She will be nothing by mouth after midnight the night prior to surgery unless instructed to take any of those medications with a small sip of water. She has been using her Hibiclens and Bactroban as directed. She has had a negative COVID test.
[2020-10-12] MEDS ORDERED: dexameTHASONE 10MG/1ML VIAL PRES.FREE (J1100 PER 1MG) XX ONE (11:15)
[2020-10-12] MEDS ORDERED: EPINEPHrine INJ 1 MG/ML 1ML AMP XX ONE (11:15)
[2020-10-12] MEDS ORDERED: ROPIvacaine 0.5% 30ML INJECTION (J2795 PER 1MG) XX ONE (11:15)
[2020-10-12] MEDS ORDERED: MIDAZOLAM INJ 2MG/2ML VIAL (J2250 PER 1MG) IV STA (12:27)
[2020-10-12] MEDS ORDERED: ONDANSETRON 4MG/2ML VIAL IV PRN ×2 (14:15→14:30)
[2020-10-12] MEDS ORDERED: fentaNYL 100 MCG/2 ML INJECTION (J3010) IV PRN (14:15)
[2020-10-12] MEDS ORDERED: oxyCODONE 5MG TAB PO PRN (14:15)
[2020-10-12] MEDS ORDERED: LR 1,000 ML IV SCH ×2 (14:15→14:30)
--- NOTE | 2020-10-12 14:16 | RO ---
OPERATIVE NOTE DATE OF OPERATION: 10/12/2020 PREOPERATIVE DIAGNOSIS: Left knee degenerative arthritis. POSTOPERATIVE DIAGNOSIS: Left knee degenerative arthritis. PROCEDURE: Left total knee arthroplasty using size 4 cruciate-retaining Attune cemented femoral component with size 3 tibial tray and 5 mm rotating platform polyethylene insert and 32 mm polyethylene button, all components were cemented. Prosthesis made by [employer]. SURGEON: Mireya Avendano M.D. SOCIAL MEDIA EXECUTIVE: Chico Ayoub PA-C ANESTHESIA: Spinal with left femoral nerve block. COMPLICATIONS: None. SPECIMEN: Joint surface. ESTIMATED BLOOD LOSS: 20 mL. PROCEDURE: Antibiotics were given intravenously preoperatively and a left femoral nerve block and then a spinal anesthetic induced. Tourniquet placed on left upper thigh and not inflated. Left lower extremity was carefully prepped and draped in the usual sterile fashion and then elevated and after appropriate time out the tourniquet was inflated. A longitudinal incision was made for medial parapatellar approach to the knee. The Bovie cautery was used to coagulate crossing vessels. Medial parapatellar arthrotomy performed. Subperiosteal dissection on proximal medial and lateral tibial plateaus performed. The patella was everted, knee flexed, ACL debrided. A drill placed down the center of the femoral canal followed by intramedullary elijah and distal femoral cutting jig set at 9 mm resection level, 5 degree valgus for left knee. It was pinned into position and distal femoral cut performed. AP sizing jig measured for a size 4. 3 degrees of external rotation were dialed in. Four-in-one block applied. The anterior and posterior chamfer cuts were performed. The sulcus osteotomy jig was applied and sulcus osteotomy performed. We then exposed the proximal tibia, used the extramedullary guide to estimate being parallel to the mechanical axis referencing off the medial tibial condyle 4 mm resection level. Block was pinned into position, secondary check with extramedullary elijah confirmed that we appeared to be parallel to the mechanical axis. This proximal tibial osteotomy was performed. Lamina piece work checker was then placed laterally and we performed a completion medial meniscectomy, debridement of posterior medial osteophytes and then placed the lamina piece work checker medially and performed completion lateral meniscectomy and debridement of the posterolateral osteophytes. The spacer blocks were then applied and it was actually quite snug both in flexion and extension, little bit more proximal laterally actually and there was some sclerosis noted there. I did elect to take an additional 2 mm from the proximal tibia, applying the block and performed the osteotomy once again. This improved her excessive tightness and 5 mm spacer block fit nicely with good symmetry of varus/valgus stress testing but there was still a bit of global tightness medially and laterally, thus I did tease off a little bit of the posterior cruciate ligament which improved the posterior rollback noted after we applied ht femoral component and tibial tray. We then exposed the proximal tibia, sized for a #3 tray, reamed and broached, applied 5 mm polyethylene insert and then femoral component. Brought the knee into extension, everted the patella, performed a patellar osteotomy, sized for a 32 button. The lug holes were drilled, the trial was placed and the patellofemoral tracking was anatomic. We drilled the lug holes for the femur and then we removed all the trial components and prepared the bony surfaces for cementing with copious amount of pulsatile lavage irrigant solution. My technical administrative assistant Mr. Chico Ayoub mixed the cement on the back table as I prepared the bony surfaces for cementing. He was also critical to the success of this difficult procedure by helping with appropriate soft tissue retraction, helped to manipulate the knee, helped to mix the cement and close the wound, prepare the patient amongst many other tasks to allow me to perform the operation smoothly, efficiently and safely. Once all the bony surfaces were thoroughly dried I cemented the tibial tray, removed excess cement and placed polyethylene, cemented the femoral component and removed excess cement, brought the knee into extension and cemented the patellar button, held it with a clamp with the knee in full extension and removed excess cement. We waited this position until the cement hardened fully. We copiously irrigated out the knee joint as we were awaiting this and then placed Tranexamic Acid. Prior to this I did place Exparel in the subperiosteal tissues around the distal femur and proximal tibia. Once the bony cement had hardened I began closing the apex of the arthrotomy with two #1 PDS sutures, the medial parapatellar area was closed with #1 PDS suture and then capsule closed with a running double arm Stratafix. Then the tourniquet was released, irrigated between layers, closed the deep subdermal tissues with interrupted 2-0 PDS sutures and skin closed with hong covered by an Optifoam and dry sterile bulky dressing. The patient was then transferred to the recovery room in stable condition. There were no intraoperative complications. cc: [facility]
--- NOTE | 2020-10-12 14:26 | REP ---
INDICATION: S/P TOTAL LEFT KNEE COMPARISON: None. TECHNIQUE: AP and cross-table lateral views. FINDINGS: Normal appearance and positioning to the femoral and tibial components. Overlying postsurgical changes and skin hong noted. IMPRESSION: Status post left knee replacement. Satisfactory positioning. <Electronically signed by Angelito Monreal > 10/12/20 9411
[2020-10-12] MEDS ORDERED: MORPHINE 4 MG/ML 1ML VIAL/SYRINGE (J2270) IV PRN (14:30)
[2020-10-12] MEDS ORDERED: ACETAMINOPHEN TAB 650MG DOSE (2X325MG) PO PRN (14:30)
[2020-10-12] MEDS ORDERED: MORPHINE 2 MG/ML 1ML VIAL (J2270) IV PRN (14:30)
[2020-10-12] MEDS ORDERED: PERCOCET 5MG/325MG TAB PO PRN ×3 (14:30→17:00)
[2020-10-12 15:15] VITALS: BP 146/80
[2020-10-12 15:45] VITALS: BP 145/78
--- NOTE | 2020-10-12 15:58 | HPEPDOC ---
General Date of Admission Oct 12, 2020 at 08:20 Date of Service: Oct 12, 2020 Chief Complaint The patient is a 65-year-old female admitted with a reason for visit of Left Knee Osteoarthritis. Source: Patient History of Present Illness Consultation report: Consultation requested by orthopedics Consultation for the management of Medical Comorbidities. HPI: 65 year old female with PMH of CAD s/p stents, HLD, depression, anxiety, insomnia osteoarthritis was admitted by the orthopedic service for elective left total knee arthroplasty for advanced OA not responding to medical management. Surgery was uneventful. Doing well after surgery. She just complains of sharp throbbing pain in the left knee about 3/10 in intensity without any radiation. Says the block is wearing off and the pain is coming. Denies any nausea or vomiting. Denies any chest pain or SOB. Home Medications Scheduled Ascorbic Acid (Vitamin C) 500 Mg Tablet, 1,000 MG PO DAILY, (Reported) Aspirin (Aspirin) 81 Mg Tab.chew, 81 MG PO DAILY, (Reported) Atorvastatin Calcium (Atorvastatin Calcium) 80 Mg Tablet, 80 MG PO DAILY, (Reported) Cetirizine HCl (Cetirizine HCl) 10 Mg Tab.chew, 10 MG PO DAILY for allergy symptoms, (Reported) Cholecalciferol (Vitamin D3) (Vitamin D3) 50 Mcg (2000 Unit) Tab.chew, 50 MCG PO DAILY, (Reported) Escitalopram Oxalate (Escitalopram Oxalate) 10 Mg Tablet, 10 MG PO DAILY, (Reported) Glucosamine/D3/Boswellia Kaycee (Osteo Bi-Flex Tablet) 1 Each Tablet, 1 EACH PO BID, (Reported) Lansoprazole (Lansoprazole) 30 Mg Capsule.dr, 30 MG PO DAILY, (Reported) Metoprolol Succinate (Metoprolol Succinate) 25 Mg Tab.er.24h, 12.5 MG PO BID, (Reported) Multivitamins (Thera M Plus Tablet) 1 Each Tablet, 1 TAB PO DAILY, (Reported) Naproxen (Naproxen) 500 Mg Tablet, 500 MG PO BID for pain, (Reported) Valacyclovir HCl (Valtrex) 500 Mg Tablet, 500 MG PO DAILY, (Reported) Scheduled PRN Ipratropium Larimer (Atrovent Hfa) 12.9 Gm Hfa.aer.ad, 2 SPRAY NA PRN PRN for REDNESS/IRRITATION, (Reported) Allergies Coded Allergies: Sulfa (Sulfonamide Antibiotics) (Verified Allergy, Unknown, CHILDHOOD ALLERGY, 10/12/20) codeine (Verified Adverse Reaction, Intermediate, SEVERE STOMACH ACHE, 10/12/20) iodine (Verified Adverse Reaction, Intermediate, RED, ITCHY SKIN, 10/12/20) Past Medical History Medical History CAD WITH 90% BLOCKAGE OF RCA ON CATH IN 05/2019; PTCA/HARVINDER X 2 DEPRESSION/ANXIETY INSOMNIA HYPERTENSION HYPERLIPIDEMIA TENDONITIS OF BOTH SHOULDERS OSTEOARTHRITIS OF KNEES, SHOULDERS, ELBOWS, WRISTS SEASONAL ALLERGIES GERD 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 BROTHER HAD BASAL CELL CARCINOMA. Social History * Smoker: non-smoker Alcohol: occationally Drugs: denies A-FIB/CHADSVASC A-FIB History Current/History of A-Fib/PAF?: No Review of Systems Constitutional: Denies: Chills, Fever, Night Sweats Eyes: Denies: Pain, Vision change ENT: Denies: Head Aches, Ear Pain, Dysphagia Skin: Denies: Rash, Lesions, Breakdown Pulmonary: Denies: Dyspnea, Cough Cardiovascular: Denies: Chest Pain, Palpitations, Orthopnea, Paroxysmal Noc. Dyspnea, Lt Headedness Gastrointestinal: Denies: Nausea, Vomiting, Abdominal Pain, Diarrhea Genitourinary: Denies: Dysuria, Frequency, Incontinence, Retention Musculoskeletal: Reports: Shoulder Pain, Joint Pain Physical Examination General Exam: Positive: Alert, Cooperative, No Acute Distress Eye Exam: Positive: PERRLA, Conjunctiva & lids normal, EOMI; Negative: Sclera icteric ENT Exam: Positive: Atraumatic, Mucous membr. moist/pink, Pharynx Normal Neck Exam: Positive: Supple; Negative: JVD, thyromegaly Chest Exam: Positive: Clear to auscultation, Normal air movement Heart Exam: Positive: Rate Normal, Regular Rhythm, Normal S1, Normal S2; Negative: Murmurs, Rubs Abdomen Exam: Positive: Normal bowel sounds, Soft; Negative: Tenderness, Hepatospenomegaly Extremity Exam: Negative: Clubbing, Cyanosis, Edema Psych Exam: Positive: Memory Intact, Oriented x 3 Vital Signs Vital Signs Date Time Temp Pulse Resp B/P (MAP) Pulse Ox O2 Delivery O2 Flow Rate FiO2 10/12/20 15:15 97.4 65 18 146/80 (102) 100 Nasal Cannula 1.0 Assessment/Plan 65 year old female with PMH of CAD s/p stents, HLD, depression, anxiety, insomnia osteoarthritis was admitted by the orthopedic service for elective left total knee arthroplasty for advanced OA not responding to medical management. Surgery was uneventful. Doing well after surgery. s/p Left total knee arthroplasty for left knee OA pain control and dvt prophylaxis as per ortho. CAD s/p HARVINDER continue statin, betablocker, ASA. Hypertension metoprolol HLD atorvastatin. GERD PPI Depression/ anxiety/insomnia on escitalopram. Allergies on cetrizine Plan / VTE VTE Prophylaxis Ordered?: Yes CHANDAN MENARD MD Oct 12, 2020 15:58
[2020-10-12 16:45] VITALS: BP 147/79
[2020-10-12] MEDS: PERCOCET 5MG/325MG TAB PO PRN (17:33)
[2020-10-12 18:45] VITALS: BP 128/75
[2020-10-12] MEDS: ASPIRIN 81 MG ENTERIC TAB PO SCH (20:08)
[2020-10-12] MEDS: ceFAZolin SOD 2 GM in IV 1 EA IV SCH (20:08)
[2020-10-12] MEDS ORDERED: ATORVASTATIN 20 MG TAB PO SCH (21:00)
[2020-10-12 22:00] VITALS: BP 132/77
[2020-10-13 02:00] VITALS: BP 137/66
[2020-10-13] MEDS: PERCOCET 5MG/325MG TAB PO PRN ×2 (02:07→07:36)
[2020-10-13] MEDS: ceFAZolin SOD 2 GM in IV 1 EA IV SCH ×2 (05:38→09:17)
[2020-10-13 06:00] VITALS: BP 136/65
[2020-10-13] MEDS ORDERED: PERC5TAB12 PO (06:18)
[2020-10-13] MEDS ORDERED: XARE10TA PO (06:21)
[2020-10-13 07:08] LABS: HEMATOCRIT 33.5 % (36.0-47.0); HEMOGLOBIN 11.2 g/dl (12.0-15.5); MEAN CORPUSCULAR HEMOGLOBIN 33.8 pg (27.0-33.0); MEAN CORPUSCULAR HGB CONC 33.4 g/dl (32.0-36.5); MEAN CORPUSCULAR VOLUME 101.2 fl (80.0-96.0); PLATELET COUNT, AUTOMATED 274 10^3/uL (150-450); RED BLOOD COUNT 3.31 10^6/uL (4.00-5.40); WHITE BLOOD COUNT 11.6 10^3/uL (4.0-10.0)
[2020-10-13] MEDS: ASPIRIN 81 MG ENTERIC TAB PO SCH (07:37)
[2020-10-13] MEDS ORDERED: DIFL150T PO (08:27)
[2020-10-13 08:58] LABS: BLOOD UREA NITROGEN 19 MG/DL (7-18); CALCIUM LEVEL 8.4 MG/DL (8.8-10.2); CARBON DIOXIDE LEVEL 27 MEQ/L (21-32); CHLORIDE LEVEL 107 MEQ/L (98-107); CREATININE FOR GFR 0.61 MG/DL (0.55-1.30); GLOMERULAR FILTRATION RATE > 60.0 (>45); GLUCOSE, FASTING 112 MG/DL (70-100); POTASSIUM SERUM 4.2 MEQ/L (3.5-5.1); SODIUM LEVEL 140 MEQ/L (136-145)
[2020-10-13] MEDS ORDERED: ASCORBIC ACID 500 MG TAB PO SCH (09:00)
[2020-10-13] MEDS ORDERED: valACYclovir HCL 500 MG TAB PO SCH (09:00)
[2020-10-13] MEDS ORDERED: MULTIVITAMINS/MINERALS THERAP 1 TAB PO SCH (09:00)
[2020-10-13] MEDS ORDERED: CETIRIZINE (ZyrTEC) 5 MG/5 ML UDC DYE FREE PO SCH (09:00)
[2020-10-13] MEDS ORDERED: OMEPRAZOLE 20 MG CAP PO SCH (09:00)
[2020-10-13] MEDS ORDERED: MOM 30ML SUSPENSION UDC PO SCH (09:00)
[2020-10-13] MEDS ORDERED: ESCITALOPRAM OXALATE 10 MG TAB (LEXAPRO) PO SCH (09:00)
[2020-10-13] MEDS ORDERED: MIRALAX *UNIT DOSE* 17GM PACKET PO SCH (09:00)
[2020-10-13 10:00] VITALS: BP 121/65
--- NOTE | 2020-10-13 10:27 | IPNPDOC ---
Subjective Date Seen The patient was seen on 10/13/20. Subjective Chief Complaint/HPI Feeling well this morning. Has worked with PT and has been found safe to go home. Planned for discharge today. Objective Physical Examination General Exam: Positive: Alert, Cooperative, No Acute Distress Eye Exam: Positive: PERRLA, Conjunctiva & lids normal, EOMI; Negative: Sclera icteric ENT Exam: Positive: Atraumatic, Mucous membr. moist/pink, Pharynx Normal Neck Exam: Positive: Supple; Negative: JVD, thyromegaly Chest Exam: Positive: Clear to auscultation, Normal air movement Heart Exam: Positive: Rate Normal, Regular Rhythm, Normal S1, Normal S2; Negative: Murmurs, Rubs Abdomen Exam: Positive: Normal bowel sounds, Soft; Negative: Tenderness, Hepatospenomegaly Extremity Exam: Negative: Clubbing, Cyanosis, Edema Psych Exam: Positive: Memory Intact, Oriented x 3 Assessment /Plan Assessment 65 year old female with PMH of CAD s/p stents, HLD, depression, anxiety, ins omnia osteoarthritis was admitted by the orthopedic service for elective left total knee arthroplasty for advanced OA not responding to medical management. Surgery was uneventful. Doing well after surgery. s/p Left total knee arthroplasty for left knee OA pain control and dvt prophylaxis as per ortho. PT/OT CAD s/p HARVINDER continue statin, betablocker, ASA. Hypertension metoprolol HLD atorvastatin. GERD PPI Depression/ anxiety/insomnia on escitalopram. Allergies on cetrizine VS, I&O, 24H, Fishbone Vital Signs/I&O Vital Signs Date Time Temp Pulse Resp B/P (MAP) Pulse Ox O2 Delivery O2 Flow Rate FiO2 10/13/20 10:00 98.7 85 18 121/65 (83) 100 Room Air 10/12/20 18:45 1.0 I&O- Last 24 Hours up to 6 AM 10/13/20 06:00 Intake Total 2360 ml Output Total 985 ml Balance 1375 ml Laboratory Data 24H LABS Laboratory Tests 2 10/13/20 06:44: Nucleated Red Blood Cells % (auto) 0.0, Anion Gap 6L, Glomerular Filtration Rate > 60.0, Calcium Level 8.4L CBC/BMP Laboratory Tests 10/13/20 06:44 CHANDAN MENARD MD Oct 13, 2020 10:26
== END 2020-10-13 10:30 | disposition home or self-care (01) | DRG 302 ==
LOC: M OR 08:20 → M MS5PR 15:15
PROVIDERS: ADMIT Orthopaedic Surgery; ATTEND Orthopaedic Surgery
PROC: 0SRD0J9 Replacement of Left Knee Joint with Synthetic Substitute, Cemented, Open Approach (ICD-10-PCS; principal; 2020-10-12 11:40)
DX: M17.12 Unilateral primary osteoarthritis, left knee (principal); I10 Essential (primary) hypertension; Z79.82 Long term (current) use of aspirin; Z79.899 Other long term (current) drug therapy; Z88.5 Allergy status to narcotic agent; Z88.2 Allergy status to sulfonamides; Z88.8 Allergy status to other drugs, medicaments and biological substances; I25.10 Atherosclerotic heart disease of native coronary artery without angina pectoris; F41.9 Anxiety disorder, unspecified; F32.9 Major depressive disorder, single episode, unspecified; G47.00 Insomnia, unspecified; E78.5 Hyperlipidemia, unspecified; K21.9 Gastro-esophageal reflux disease without esophagitis

== ENCOUNTER 2020-11-09 16:45 | Outpatient (RCR) | payer BC, OTHER ==
[~2020-11-09 16:45] MED LIST changes: -ACETAMINOPHEN 500 MG TAB PO ONE; +DIFL150T PO; +ESCI10TA16 PO; -ESCI10TA2 PO; -LR 1,000 ML IV ONE; -MIDAZOLAM INJ 2MG/2ML VIAL (J2250 PER 1MG) IV PRN; +PERC5TAB12 PO; +XARE10TA PO; -ceFAZolin SOD 2 GM in IV 1 EA IV ONE; -fentaNYL 100 MCG/2 ML INJECTION (J3010) IV PRN
== END 2020-11-13 ==
LOC: M PT 16:45
PROVIDERS: ATTEND Orthopaedic Surgery
DX: Z47.89 Encounter for other orthopedic aftercare (principal); Z96.652 Presence of left artificial knee joint

== ENCOUNTER 2020-12-07 13:37 | Outpatient (RCR) | payer BC, OTHER | END 2020-12-11 | LOC: M PT 13:37 | PROVIDERS: ATTEND Orthopaedic Surgery | DX: Z47.89 Encounter for other orthopedic aftercare (principal); Z96.652 Presence of left artificial knee joint ==

== ENCOUNTER 2021-01-10 12:57 | Outpatient (RCR) | payer BC, OTHER | END 2021-01-11 | LOC: M PT 12:57 | PROVIDERS: ATTEND Orthopaedic Surgery | DX: Z98.890 Other specified postprocedural states (principal); Z96.652 Presence of left artificial knee joint ==

== ENCOUNTER → 2021-02-20 | Outpatient (CLI) | payer BC, OTHER ==
[2021-02-20 15:47] LABS: HEMOGLOBIN A1c 5.4 %
[2021-02-20 15:53] LABS: ALBUMIN 4.1 GM/DL (3.2-5.2); PERCENT SATURATION 32.1 % (13.2-45.0)
== END ==
LOC: M PLALAB 14:05
PROVIDERS: ATTEND Orthopaedic Surgery
DX: M25.569 Pain in unspecified knee (principal); M17.10 Unilateral primary osteoarthritis, unspecified knee; Z01.818 Encounter for other preprocedural examination

== ENCOUNTER → 2021-02-27 | Outpatient (CLI) | payer BC, OTHER ==
--- NOTE | 2021-02-27 15:59 | REP ---
INDICATION: PAIN IN LT HIP injury January 2020 in April 2020, pain COMPARISON: None. TECHNIQUE: Coronal T1, STIR through the pelvis, axial, coronal, sagittal T2 fat sat left hip. FINDINGS: There is no bone marrow edema or occult fracture. There is no evidence of avascular necrosis. There is a small subcortical focus of low signal on T1 and high signal on T2 in the femoral neck anteriorly measuring about 6-7 mm in diameter. This has the appearance of a small synovial herniation pit. I suspect an anterior labral tear.. There is no paralabral cyst. There is a very small joint effusion. There is mild ill-defined high signal in the soft tissues adjacent to both greater trochanters, compatible with mild bilateral greater trochanteric tendonobursitis. No other abnormal surrounding soft tissue signal is seen. There is sigmoid diverticulosis incidentally noted. IMPRESSION: Small synovial herniation pit in the femoral neck. No other osseous abnormality. I suspect an anterior labral tear. This could be confirmed with an MR arthrogram if clinically indicated. Mild bilateral greater trochanteric tendonobursitis. <Electronically signed by Ar Mckeon > 02/27/21 [id number]
== END ==
LOC: M RAD 13:53
PROVIDERS: ATTEND Physician Assistant Surgical
DX: M70.62 Trochanteric bursitis, left hip (principal)

== ENCOUNTER → 2021-02-28 | Outpatient (REF) | payer BC, OTHER ==
[2021-02-28 15:08] LABS: APPEARANCE, URINE CLEAR (CLEAR); BACTERIA, URINE AUTO NEGATIVE (NEGATIVE); BILIRUBIN, URINE AUTO NEGATIVE (NEGATIVE); BLOOD, URINE BLOOD NEGATIVE (NEGATIVE); COLOR, URINE STRAW (YELLOW); GLUCOSE, URINE (UA) AUTO NEGATIVE (NEGATIVE); KETONE, URINE AUTO NEGATIVE (NEGATIVE); LEUKOCYTE ESTERASE, URINE AUTO NEGATIVE (NEGATIVE); MUCUS, URINE SMALL (NEGATIVE); NITRITE, URINE AUTO NEGATIVE (NEGATIVE); PROTEIN, URINE AUTO NEGATIVE (NEGATIVE); RBC, URINE AUTO 0 /HPF (0-3); SPECIFIC GRAVITY URINE AUTO 1.014 (1.002-1.035); SQUAMOUS EPITHELIAL CELL UR AU 0 /HPF (0-6); UROBILINOGEN, URINE AUTO 0.2 mg/dL (0.0-2.0); WBC, URINE AUTO 0 /HPF (0-3)
[2021-02-28 15:11] LABS: BASO % 0.3 % (0.0-1.0); EOS # 0.1 10^3/uL (0.0-0.5); EOS % 0.9 % (0.0-3.0); HEMATOCRIT 37.8 % (36.0-47.0); HEMOGLOBIN 12.5 g/dl (12.0-15.5); LYMPH # 1.9 10^3/uL (1.5-5.0); LYMPH % 26.9 % (24.0-44.0); MEAN CORPUSCULAR HEMOGLOBIN 33.2 pg (27.0-33.0); MEAN CORPUSCULAR HGB CONC 33.1 g/dl (32.0-36.5); MEAN CORPUSCULAR VOLUME 100.5 fl (80.0-96.0); MONO # 0.5 10^3/uL (0.0-0.8); MONO % 6.8 % (2.0-8.0); NEUTROPHILS # 4.6 10^3/uL (1.5-8.5); NEUTROPHILS % 64.8 % (36.0-66.0); PLATELET COUNT, AUTOMATED 299 10^3/uL (150-450); RED BLOOD COUNT 3.76 10^6/uL (4.00-5.40)
[2021-02-28 15:21] LABS: INR 0.92; PROTHROMBIN TIME 12.6 SECONDS (12.5-14.3)
[2021-02-28 15:22] LABS: PARTIAL THROMBOPLASTIN TIME 27.6 SECONDS (24.2-38.5)
[2021-02-28 15:53] LABS: ALBUMIN 4.3 GM/DL (3.2-5.2); ALT/SGPT 29 U/L (12-78); BILIRUBIN,TOTAL 0.3 MG/DL (0.2-1.0); BLOOD UREA NITROGEN 21 MG/DL (7-18); CALCIUM LEVEL 9.1 MG/DL (8.8-10.2); CARBON DIOXIDE LEVEL 27 MEQ/L (21-32); CHLORIDE LEVEL 107 MEQ/L (98-107); CREATININE FOR GFR 0.54 MG/DL (0.55-1.30); GLOMERULAR FILTRATION RATE > 60.0 (>45); GLUCOSE, FASTING 95 MG/DL (70-100); POTASSIUM SERUM 4.2 MEQ/L (3.5-5.1); SODIUM LEVEL 141 MEQ/L (136-145); TOTAL PROTEIN 6.9 GM/DL (6.4-8.2)
== END ==
LOC: M SFHCPLAZ 14:26
PROVIDERS: ATTEND Family Medicine
DX: Z01.818 Encounter for other preprocedural examination (principal)

== ENCOUNTER → 2021-07-03 | Outpatient (CLI) | payer BC, OTHER ==
[2021-07-03 11:29] LABS: CHOLESTEROL RISK RATIO 2.5 (<5)
== END ==
LOC: M PLALAB 08:01
PROVIDERS: ATTEND Family Medicine
DX: E78.2 Mixed hyperlipidemia (principal)